=== PATIENT | female | born 2000 | race Caucasian/White ===

== ENCOUNTER 2020-02-02 11:57 | Emergency (ER) | payer OTHER, SELFPAY ==
--- NOTE | ~2020-02-02 | XR_ITS ---
EXAMINATION: XR abdomen/kub 1V INDICATION: Right flank pain and hematuria TECHNIQUE: Supine views of the abdomen were obtained on 2 radiographs. COMPARISON: None FINDINGS: There is a moderate volume of right-sided colonic stool. The bowel gas pattern is normal. N o suspected urinary tract calculi are identified. There is a phlebolith in the left pelvis. Surgical clips in the right upper quadrant are likely from prior cholecystectomy. IMPRESSION: 1. Constipation. No urinary tract calculi identified. Reviewed, dictated and finalized at location A.
[2020-02-02 12:14] VITALS: BP 105/65; PULSE 104; RESP 22; TEMP 37.2; O2SAT 100
[2020-02-02 12:20] VITALS: BP 105/65; PULSE 104; RESP 22; TEMP 37.2
--- NOTE | 2020-02-02 12:25 | ED.ABDPAIN ---
HPI - Abdominal Pain General Chief Complaint: Abdominal Pain Stated Complaint: pain in ribs Time Seen by Provider: 02/02/20 12:19 Source: patient and RN notes reviewed Mode of arrival: ambulatory Limitations: no limitations History of Present Illness HPI narrative: Patient presents today complaining of right flank pain x1 week, that has been worsening since onset. Pain increases with coughing or movement. Denies any injury, recent fever. Denies urinary symptoms to include dysuria or hematuria. Denies any cough or upper respiratory symptoms. Currently rates her pain 5/10, and states the pain waxes and wanes. She has been taking ibuprofen without relief. Last dose was last night. History of appendectomy and cholecystectomy. No history of kidney stones or pyelonephritis. Patient has Nexplanon. MD elicited complaint: flank pain Related Data Allergies Allergy/AdvReac Type Severity Reaction Status Date / Time No Known Allergies Allergy Verified 06/26/18 19:55 Review of Systems Review of Systems: Narrative: CONSTITUTIONAL: Denies body aches, fever, chills, or sweats. EYES: Denies visual changes, redness, or discharge. ENT: Denies rhinorrhea, congestion, sore throat, or otalgia. CARDIOVASCULAR: Denies chest pain, palpitations, or edema. RESPIRATORY: Denies cough or dyspnea. GASTROINTESTINAL: Denies abdominal pain, nausea, vomiting, or diarrhea. GENITOURINARY: Denies dysuria or hematuria. Right flank pain SKIN: Denies rash, itching, or wounds. MUSCULOSKELETAL: Denies back pain, joint pain, or myalgia. NEUROLOGIC: Denies headache, numbness, tingling, or weakness. PSYCH: Denies depression or anxiety. [facility] Surgical History Surgical History (Updated 02/02/20 @ 12:26 by Bri Rubalcava, [facility], ) History of appendectomy History of cholecystectomy Comments At time of signature, I have reviewed and agree with nursing past medical, surgical, social and family history unless otherwise noted. Please see nursing chart for further information. There is no relevant family history pertinent to the presenting complaint Exam Narrative: Exam Narrative: GENERAL: Mildly ill-appearing, well-nourished, and moderate pain distress. HEAD: Normocephalic, atraumatic. EYES: EOMI. No redness or drainage. Conjunctivae normal. ENT: Mucous membranes pink and moist. NECK: Normal AROM. Supple. No lymphadenopathy. CHEST: No respiratory distress. Clear to auscultation. HEART: Regular rate and rhythm. No murmur appreciated. Normal peripheral pulses. ABDOMEN: Soft, nontender, nondistended, normal active bowel sounds. +Right CVAT. Tenderness does extend laterally. MUSCULOSKELETAL: No bony tenderness. EXTREMITIES: Normal range of motion. No edema. SKIN: Warm, dry, no rash. Capillary refill normal. Normal skin turgor. NEURO: No focal deficits. Alert and oriented x3. Gait steady. PSYCH: Normal affect. No signs of depression or anxiety. Course Course Emergency Course: Discussed xray and lab results with patient. Discussed xray results with radiologist. Dr. Morrison states that it is possible that there could be a stone behind the retained stool that is currently visible on xray. Gave patient the option of going to the ER for further evaluation or going home with prescriptions for medications. Patient states she would like to try home treatment first, but agrees to go to the ER with any worsening symtpoms. Vital Signs Vital signs: Vital Signs Temperature 99.0 F 02/02/20 12:14 Pulse Rate 104 H 02/02/20 12:14 Respiratory Rate 22 H 02/02/20 12:14 Blood Pressure 105/65 02/02/20 12:14 Pulse Oximetry 100 02/02/20 12:14 Temperature 99.0 F 02/02/20 12:20 Pulse Rate 104 H 02/02/20 12:20 Respiratory Rate 22 H 02/02/20 12:20 Blood Pressure 105/65 02/02/20 12:20 Pulse Oximetry 100 02/02/20 12:14 Reviewed MDM - Abdominal Pain Differential Diagnosis Differential diagnosis: Likely calculus of kidney and other (Pyeloneph
[2020-02-02] MEDS: KETOROLAC (*BKC) 60 MG/2 ML VIAL IM (12:33)
--- NOTE | 2020-02-02 12:39 | PC.NURSE ---
UA complete. torodol per order.
--- NOTE | 2020-02-02 13:12 | PC.NURSE ---
pt states pain is not improving after torodol.
== END 2020-02-02 13:23 | disposition home or self-care (01) ==
PROVIDERS: Emergency Provider Nurse Practitioner; PCP Physician Assistant
DX: N30.01 Acute cystitis with hematuria (principal); K59.00 Constipation, unspecified
CPT/HCPCS: 74018; 81003; 87077; 87086; 87088; 87186; 96372; 99213; G0463; J1885

== ENCOUNTER 2020-05-15 14:56 | Emergency (ER) | payer OTHER, SELFPAY ==
--- NOTE | ~2020-05-15 | XR_ITS ---
EXAMINATION: XR foot RT min 3V EXAM DATE: 05/15/2020 15:29 INDICATION: Inversion injury, proximal dorsal right foot pain. Initial encounter. TECHNIQUE: Right foot dorsoplantar, lateral and oblique projections obtained and reviewed. Compariso n is made to prior examination from 08/13/2012. FINDINGS: Right metatarsal bones unremarkable. There are no acute fractures or dislocations identifi ed. There is no subcutaneous gas. The soft tissue is unremarkable. There are no radiopaque foreig n bodies. IMPRESSION: 1. Right foot exam without acute osseous findings. Reviewed, dictated and finalized at location A.
[2020-05-15 15:06] VITALS: BP 117/53; PULSE 85; RESP 14; TEMP 36.6; O2SAT 100
--- NOTE | 2020-05-15 15:36 | ED.GENADULT ---
HPI - General Adult General Chief complaint: Extremity Injury, Lower Stated complaint: Right ankle pain Time Seen by Provider: 05/15/20 15:48 Source: patient Mode of arrival: ambulatory Limitations: no limitations History of Present Illness HPI narrative: 19-year-old female patient presents to the [facility] with complaints of right foot pain. Patient states that she twisted her ankle and foot when coming down her basement stairs earlier this afternoon. Patient denies taking any Tylenol or ibuprofen for pain so far. Patient has iced it. Patient complains of pain with ambulation. Related Data Home Medications Medication Instructions Recorded Confirmed No Home Medications 05/15/20 05/15/20 Allergies Allergy/AdvReac Type Severity Reaction Status Date / Time No Known Allergies Allergy Verified 05/15/20 15:28 Review of Systems Review of Systems: Narrative: CONSTITUTIONAL: Denies fever, chills, or sweats. EYES: Denies visual changes, redness, or discharge. ENT: Denies rhinorrhea, congestion, sore throat, or otalgia. CARDIOVASCULAR: Denies chest pain, palpitations, or edema. RESPIRATORY: Denies cough or dyspnea. GASTROINTESTINAL: Denies abdominal pain, nausea, vomiting, or diarrhea. GENITOURINARY: Denies dysuria or hematuria. SKIN: Denies rash or itching. MUSCULOSKELETAL: Denies back pain, joint pain, or myalgia. Positive right foot pain NEUROLOGIC: Denies headache, numbness, or weakness. PSYCHIATRIC: Denies anxiety or depression. [facility] Surgical History Surgical History History of appendectomy History of cholecystectomy Comments At the time of my signature I agree with nursing past medical history, surgical, social, and family history. There is no relevant family history pertinent to the presenting complaint. Exam Narrative: Exam Narrative: GENERAL: Well-appearing, well-nourished, and in no acute distress. HEAD: Normocephalic, atraumatic. EYES: PERRLA and EOMI. ENT: Nares clear, no rhinorrhea or epistaxis. Mucous membranes moist. NECK: Supple. No lymphadenopathy CHEST: Clear to auscultation. No respiratory distress. HEART: Regular rate and rhythm. No murmur heard. Normal peripheral pulses. ABDOMEN: Soft, nontender, nondistended, normal active bowel sounds. EXTREMITIES: Patient unable to bear weight or ambulate without pain to right foot. No surface trauma, very slight ecchymosis noted to the lateral side of the foot, no erythema, lesions, ulcers or break in skin integrity. The R foot is without obvious asymmetry or deformity when compared to the L foot. No bony step-off, nontender to palpation over the toes, tenderness over the lateral midfoot of the right foot denies pain to the hindfoot or sole. Normal plantar/dorsiflexion, inversion/eversion. Distal motor and neurovascular status are intact SKIN: Warm, dry, no rash. NEURO: No focal deficits. Alert and oriented x3. Course Vital Signs Vital signs: Vital Signs Temperature 36.6 C 05/15/20 15:06 Pulse Rate 85 05/15/20 15:06 Respiratory Rate 14 05/15/20 15:06 Blood Pressure 117/53 L 05/15/20 15:06 Pulse Oximetry 100 05/15/20 15:06 Temperature 36.6 C 05/15/20 15:06 Pulse Rate 85 05/15/20 15:06 Respiratory Rate 14 05/15/20 15:06 Blood Pressure 117/53 L 05/15/20 15:06 Pulse Oximetry 100 05/15/20 15:06 Vital signs reviewed. Medical Decision Making Differential Diagnosis Differential Diagnosis: Differential diagnosis: Foot fracture, crush injury, compartment syndrome, contusion, sprain, tendinitis,lisfranc sprain or fracture, avulsion fracture, grown toenail, diabetic ulcer. Notify patient that the x-ray does not show any obvious fractures at this time. Discussed with her that this is most likely a sprain therefore we will go ahead and wrap her with an Aelxy wrap as well as give her some crutches to help with ambulation. Discussed with patient she can take Tylenol and ibuprof
== END 2020-05-15 16:00 | disposition home or self-care (01) ==
PROVIDERS: Emergency Provider Nurse Practitioner Family; PCP Physician Assistant
DX: S93.601A Unspecified sprain of right foot, initial encounter (principal); X50.9XXA Other and unspecified overexertion or strenuous movements or postures, initial encounter
CPT/HCPCS: 73630; 99213; G0463

== ENCOUNTER 2021-01-31 11:55 | Emergency (ER) | payer OTHER, SELFPAY ==
[2021-01-31 12:05] VITALS: BP 128/66; PULSE 115; RESP 20; TEMP 37.2; O2SAT 100
--- NOTE | 2021-01-31 12:05 | ED.BACK ---
HPI - Back Pain/Injury General Chief Complaint: Back Pain/Injury Stated Complaint: lower back pain/nausea Time Seen by Provider: 01/31/21 12:06 Source: patient and RN notes reviewed Mode of arrival: ambulatory Limitations: no limitations History of Present Illness HPI Narrative: 20-year-old female presents concern for 5-day history sent history of mid back pain, nausea, vomiting. Reports 4-5 episodes of vomiting daily. Reports constant midline low back pain with no relieving or exacerbating factors. Denies fever, dysuria, hematuria, flank pain, urgency, frequency. Reports constipation for 5 days. Denies intervention. MD elicited complaint: back pain Related Data Home Medications Medication Instructions Recorded Confirmed No Home Medications 05/15/20 01/31/21 Allergies Allergy/AdvReac Type Severity Reaction Status Date / Time No Known Allergies Allergy Verified 01/31/21 12:06 Review of Systems Review of Systems: Narrative: CONSTITUTIONAL: Denies malaise, chills, sweats, or fever. CARDIOVASCULAR: Denies chest pain, palpitations, or edema. RESPIRATORY: Denies cough or dyspnea. GASTROINTESTINAL: Denies abdominal pain, diarrhea, bloody, or mucous stools. Reports constipation, nausea, vomiting, GENITOURINARY: Denies dysuria or hematuria. SKIN: Denies rash or itching. MUSCULOSKELETAL: Reports constant midline back pain. Denies joint pain, or myalgia. NEUROLOGIC: Denies numbness, weakness, or headache. All systems reviewed & are unremarkable except as noted in HPI and below PMFSH Surgical History Surgical History History of appendectomy History of cholecystectomy Comments At time of signature, agree with nursing past medical, surgical, social and family history. There is no relevant family history pertinent to the presenting complaint Exam Narrative: Exam Narrative: GENERAL: Nontoxic appearing, in no acute distress. HEAD: Normocephalic EYES: PERRLA, conjunctivae clear ENT: Mucous membranes slightly dry. NECK: Supple. CHEST: No respiratory distress. Speaks in full sentences. HEART: Regular rate and rhythm ABDOMEN: Soft, nontender, nondistended, normal active bowel sounds, no palpable masses. EXTREMITIES: Grossly normal range of motion, no edema, grossly normal strength and sensation. Midline back tenderness. Transfers from sitting to standing position. Normal gait SKIN: Warm, dry, no rash. NEURO: Alert and oriented x3. PSYCH: Normal mood and affect Course Course Emergency Course: Patient is aware of, understands and agrees to reasons to be seen in the emergency department. Patient agrees to proceed directly to the emergency department. Portions of this record may have been created with voice recognition software Vital Signs Vital signs: Vital Signs Temperature 98.9 F 01/31/21 12:05 Pulse Rate 115 H 01/31/21 12:05 Respiratory Rate 20 01/31/21 12:05 Blood Pressure 128/66 01/31/21 12:05 Pulse Oximetry 100 01/31/21 12:05 Temperature 98.9 F 01/31/21 12:05 Pulse Rate 115 H 01/31/21 12:05 Respiratory Rate 20 01/31/21 12:05 Blood Pressure 128/66 01/31/21 12:05 Pulse Oximetry 100 01/31/21 12:05 Reviewed. Transfer Transfered to: [facility]) Transportation: Other (Private vehicle) Transfer rationale: Back pain, vomiting, concern for dehydration, constipation Accepting physician: Heri MDM - Back Pain/Injury MDM Narrative Medical decision making narrative: Exam findings and history warrant further evaluation emergency department; patient is non-toxic appearing and is in no distress. No treatment given at this time for UTI, will defer to ER. Lab Data Labs: Urine Glucose Negative Reference Range: Negative Urine Bilirubin Negative Reference Range: Negative Urine Ketone
[2021-01-31] MEDS: ONDANSETRON HCL ODT 4 MG TABLET PO (12:23)
== END 2021-01-31 12:23 | disposition short-term general hospital (02) ==
PROVIDERS: Emergency Provider Nurse Practitioner; PCP Physician Assistant
DX: M54.5 Low back pain (principal)
CPT/HCPCS: 81003; 99213; A9270; G0463

== ENCOUNTER 2022-06-17 11:18 | Emergency (ER) | payer OTHER, SELFPAY ==
--- NOTE | ~2022-06-17 | XR_ITS ---
EXAMINATION: XR tibia fibula LT 2V INDICATION: Left leg pain TECHNIQUE: Two views of the left tibia and fibula are obtained. COMPARISON: None available FINDINGS: There is anterior soft tissue swelling overlying the proximal tibia and fibula. No fracture is identified. Bone alignment at the knee and ankle is normal. IMPRESSION: 1. Soft tissue swelling without acute osseous abnormality. Reviewed, dictated and finalized at location B.
[2022-06-17 11:27] VITALS: BP 155/61; PULSE 111; RESP 18; TEMP 37.4; O2SAT 100
--- NOTE | 2022-06-17 11:33 | PC.NURSE ---
PT DECLINED ICE AND WHEELCHAIR
--- NOTE | 2022-06-17 11:35 | ED.LOWEXIN ---
HPI - Extremity Injury (Lower) General Chief Complaint: Extremity Injury, Lower Stated Complaint: left foot pain Time Seen by Provider: 06/17/22 11:35 Source: patient Mode of arrival: ambulatory Limitations: no limitations History of Present Illness HPI Narrative: 21 y/o female presented for c/o left lower leg pain after injury 2 weeks ago. At the time, she injured the leg while attempting a cartwheel into a pool, hitting the leg on the concrete side of the pool. Endorses Bruising and swelling is improving but since the pain persists she wanted evaluation. She is able to bear weight. Denies numbness, tingling or weakness of the extremity. Related Data Home Medications Medication Instructions Recorded Confirmed No Home Medications 05/15/20 06/17/22 Allergies Allergy/AdvReac Type Severity Reaction Status Date / Time No Known Allergies Allergy Verified 06/17/22 11:22 Review of Systems Review of Systems: CONSTITUTIONAL: Denies body aches, fever, chills CARDIOVASCULAR: Denies chest pain, palpitations, or edema. RESPIRATORY: Denies cough or dyspnea. SKIN: Bruising left leg MUSCULOSKELETAL: Reports leg pain NEUROLOGIC: Denies headache, numbness, tingling, or weakness. All systems reviewed & are unremarkable except as noted in HPI and below PMFSH Surgical History Surgical History History of appendectomy History of cholecystectomy Comments At time of signature, I have reviewed and agree with nursing past medical, surgical, social and family history unless otherwise noted. Please see nursing chart for further information. There is no relevant family history pertinent to the presenting complaint Exam Narrative: GENERAL: Well-appearing, well-nourished, and in no acute distress. HEAD: Normocephalic, atraumatic. EYES: conjunctivae clear CHEST: Speaks in full sentences. No respiratory distress. EXTREMITIES: Large contusion to left ibrahim, tender with palpation, mild warmth, no induration or redness; leg has normal strength and sensation, normal range of motion. No open wounds or obvious deformity; pulse palpable and equal bilaterally, skin warm, dry, pink. Capillary refill less than 3 seconds. SKIN: Warm, dry, no rash. NEURO: Alert and oriented x3. Course Course Emergency Course: Patient is aware of diagnosis, understands and agrees to treatment plan. Anticipatory guidance given. Patient agrees to follow-up as directed and is aware of reasons to seek care at the emergency department. Portions of this record may have been created with voice recognition software Level of Care: Express Care Visit Vital Signs Vital signs: Vital Signs Temperature 99.4 F 06/17/22 11:27 Pulse Rate 111 H 06/17/22 11:27 Respiratory Rate 18 06/17/22 11:27 Blood Pressure 155/61 H 06/17/22 11:27 Pulse Oximetry 100 06/17/22 11:27 Oxygen Delivery Room Air 06/17/22 11:27 Temperature 99.4 F 06/17/22 11:27 Pulse Rate 111 H 06/17/22 11:27 Respiratory Rate 18 06/17/22 11:27 Blood Pressure 155/61 H 06/17/22 11:27 Pulse Oximetry 100 06/17/22 11:27 Oxygen Delivery Room Air 06/17/22 11:27 Reviewed MDM - Extremity Injury (Lower) MDM Narrative Medical decision making narrative: Result of x-ray reviewed with patient. FRANKY applied. Advised supportive measures and signs/symptoms to go to the ER. Pt is appropriate for outpt treatment and f/u. Differential Diagnosis Differential diagnosis: Likely fracture of femur and other (contusion, abscess, cellulitis) Imaging Data Radiologist's impression: Patient: Fidel Hough : 2000 MR#: [id number] Age/Sex: 21 / F Acct:[id number] Loc: [facility]? ? ADM Date: 06/17/22Attending Dr: Ordering Physician: Tanya Martinez APRN Date of Service: 06/17/22 Procedure(s): XR tibia fibula LT 2V Accession Number(s): [id number] cc: Tanya Martinez APRN; Bekah Adame [facility]~ EXAMINATION:
== END 2022-06-17 11:45 | disposition home or self-care (01) ==
PROVIDERS: Emergency Provider Nurse Practitioner Family; PCP Physician Assistant
DX: S80.12XA Contusion of left lower leg, initial encounter (principal); W22.8XXA Striking against or struck by other objects, initial encounter
CPT/HCPCS: 73590; 99213; G0463

== ENCOUNTER 2024-07-12 11:34 | Emergency (ER) | payer OTHER, SELFPAY ==
[2024-07-12 11:44] VITALS: BP 113/67; PULSE 78; RESP 16; TEMP 36.9; O2SAT 99
--- NOTE | 2024-07-12 12:32 | ED.DENTAL ---
HPI - Dental/Oral General Chief complaint: Dental/Oral Stated complaint: Toothache Source: patient Mode of arrival: ambulatory History of Present Illness HPI Narrative: 23-year-old female presented for complaint of bilateral upper dental pain worsening over the past few months. She does not have a dentist. She says Tylenol and ibuprofen does not help the pain. Denies facial swelling, n/v/d/f/c. Complaint: tooth pain Related Data Allergies Allergy/AdvReac Type Severity Reaction Status Date / Time No Known Allergies Allergy Verified 06/17/22 11:22 Review of Systems Review of Systems: CONSTITUTIONAL: Denies body aches, fever, chills ENT: Denies rhinorrhea, congestion, sore throat, or otalgia. Reports dental pain CARDIOVASCULAR: Denies chest pain, palpitations RESPIRATORY: Denies cough or dyspnea. SKIN: Denies rash, itching, or wounds. MUSCULOSKELETAL: Denies myalgia. NEUROLOGIC: Denies headache, numbness, tingling, or weakness. [facility] Surgical History Surgical History History of appendectomy History of cholecystectomy Comments At time of signature, I have reviewed and agree with nursing past medical, surgical, social and family history unless otherwise noted. Please see nursing chart for further information. There is no relevant family history pertinent to the presenting complaint Exam Narrative: GENERAL: Appears in pain; no acute distress. HEAD: Normocephalic, atraumatic. No facial swelling. EYES: EOMI. No redness or drainage. Conjunctivae normal. ENT: Dental pain location of #14, #3, extremely poor dentition throughout, broken teeth and caries, erosion, and gingivitis noted. Mucous membranes pink and moist. TMs normal bilaterally. Throat normal, no dysphagia, odynophagia, dysphonia, or dyspnea. No uvular deviation or soft palate edema. NECK: Normal AROM. No lymphadenopathy. no induration below mandible, no neck pain. CHEST: No respiratory distress. Clear to auscultation. HEART: Regular rate and rhythm. No murmur appreciated. NEURO: Alert and oriented x3. Gait steady. Course Course Emergency Course: Patient is aware of diagnosis, understands and agrees to treatment plan. Anticipatory guidance given. Patient agrees to follow-up as directed and is aware of reasons to seek care at the emergency department. Portions of this record may have been created with voice recognition software Level of Care: Express Care Visit Vital Signs Vital signs: Vital Signs Temperature 98.4 F 07/12/24 11:44 Pulse Rate 78 07/12/24 11:44 Respiratory Rate 16 07/12/24 11:44 Blood Pressure 113/67 07/12/24 11:44 Pulse Oximetry 99 07/12/24 11:44 Oxygen Delivery Room Air 07/12/24 11:44 Temperature 98.4 F 07/12/24 11:44 Pulse Rate 78 07/12/24 11:44 Respiratory Rate 16 07/12/24 11:44 Blood Pressure 113/67 07/12/24 11:44 Pulse Oximetry 99 07/12/24 11:44 Oxygen Delivery Room Air 07/12/24 11:44 MDM - Dental/Oral MDM Narrative Medical decision making narrative: Patients pain and complaint coupled with physical findings are consistent with dentalgia. There are no focal signs of space occupying lesions that are compromising to the airway; Patient is non-toxic appearing. The floor of the mouth is soft with no signs of Sid's Angina; Patient is without trismus or drooling and able to swallow secretions. Patient is felt appropriate for discharge home with dental follow up. Discharge Plan Discharge Clinical Impression: Toothache Patient Disposition: Home, Self-Care Condition: Stable Instructions: Antibiotic Form, Dental Abscess (ED) Additional Instructions: Take antibiotic as directed May apply heat or ice to the face Gentle brushing and flossing. Rinse mouth with warm salt water at least 2 times a day. Alternate Tylenol and ibuprofen as needed for pain Follow-up with the dentist as soon as
== END 2024-07-12 12:45 | disposition home or self-care (01) ==
PROVIDERS: Emergency Provider Nurse Practitioner Family; PCP Physician Assistant
DX: K08.89 Other specified disorders of teeth and supporting structures (principal)
CPT/HCPCS: 99213; G0463

== ENCOUNTER 2025-09-15 09:14 | Emergency (ER) | payer OTHER, SELFPAY ==
[2025-09-15 09:28] VITALS: BP 121/75; PULSE 74; RESP 20; TEMP 36.6; O2SAT 100
--- NOTE | 2025-09-15 10:24 | ED_ITS ---
HPI - Skin/Abscess/Foreign Bdy General Chief complaint: Skin/Abscess/Foreign Body Stated complaint: Skin Problem Time Seen by Provider: 09/15/25 10:10 Source: patient and RN notes reviewed Mode of arrival: ambulatory Limitations: no limitations History of Present Illness HPI narrative: 24-year-old female presents Express Care complaining of rash last 2 weeks. Says is getting worse. Patient reports started on her back with now migrated to her trunk, she reports the rash was trying pruritic. Patient denies any pain, fevers, swelling, drainage, body aches, chills, nausea, vomiting, your symptoms. Patient denies any history of skin problems. Patient is not draining help with symptoms. Related Data Allergies Allergy/AdvReac Type Severity Reaction Status Date / Time No Known Allergies Allergy Verified 09/15/25 09:37 Review of Systems Review of Systems: CONSTITUTIONAL: Denies fever, chills, or sweats. EYES: Denies visual changes, redness, or discharge. ENT: Denies rhinorrhea, congestion, sore throat, or otalgia. CARDIOVASCULAR: Denies chest pain, palpitations, or edema. RESPIRATORY: Denies cough or dyspnea. GASTROINTESTINAL: Denies abdominal pain, nausea, vomiting, or diarrhea. GENITOURINARY: Denies dysuria or hematuria. SKIN: Positive for rash and itching. MUSCULOSKELETAL: Denies back pain, joint pain, or myalgia. NEUROLOGIC: Denies headache, numbness, or weakness. PSYCHIATRIC: Denies anxiety or depression. All other systems reviewed are negative, except as documented in HPI. PMFSH Surgical History Surgical History History of cholecystectomy History of appendectomy Comments At the time of my signature, I reviewed and agree with the nursing past medical, surgical, social, and family history. There is no relevant family history pertinent to the patient complaint. Exam Narrative: GENERAL: This is a well-nourished, well-developed adult, in no apparent distress. They are non ill-appearing, nontoxic appearing. HEAD: normocephalic, atraumatic. EYES: Sclera clear/white. Conjunctiva normal. Vision is grossly intact. Extraocular movements intact EARS: External ears normal, Hearing grossly intact. NOSE: External nose normal THROAT: Mucous membranes moist, NECK: Neck supple, CARDIOVASCULAR: Regular rate and rhythm RESPIRATORY: Respiratory rate normal, respiratory effort nonlabored, no respiratory distress SKIN: There is a scattered macular rash scattered throughout the patient's trunk and back. There are a few plaque like erythematous lesions that appear dry and flaky without central clearing to the patient's upper back, right lateral neck, and right flank area. No area of fluctuance, no induration, nontender to palpate. NEURO: awake, alert, and oriented to person, place and time. There were no obvious focal neurologic abnormalities. EXTREMITIES: No joint tenderness, effusion, or edema noted. BACK: Nontender without deformity. Course Course Level of Care: Express Care Visit Vital Signs Vital signs: Vital Signs Temperature 97.8 F 09/15/25 09:28 Pulse Rate 74 09/15/25 09:28 Respiratory Rate 20 09/15/25 09:28 Blood Pressure 121/75 09/15/25 09:28 Pulse Oximetry 100 09/15/25 09:28 Oxygen Delivery Room Air 09/15/25 09:28 Temperature 97.8 F 09/15/25 09:28 Pulse Rate 74 09/15/25 09:28 Respiratory Rate 20 09/15/25 09:28 Blood Pressure 121/75 09/15/25 09:28 Pulse Oximetry 100 09/15/25 09:28 Oxygen Delivery Room Air 09/15/25 09:28 MDM MDM Narrative Medical decision making narrative: Rash appears to be dry and scaly, with a few plaque-like lesions present. No central clearing, no raised border. Seems to be atopic dermatitis. Will treat with prednisone and there were triamcinolone cream for the plaque lesions. Advised patient to follow-up with PCP for further evaluation. Discussed physical exam findings. Advised supportive measures and signs/symptoms to go to the ER. Pt is appropriate for outpt treatment and f/u. Differential Diagnosis Differential Diagnosis: Atopic dermatitis, eczema, plaque psoriasis, ringworm, rash, allergic reaction Critical Care Time Critical Care Time Critical Care Time: No Discharge Plan Discharge Clinical Impression: Rash and nonspecific skin eruption Patient Disposition: Home Condition: Stable Instructions: Eczema (ED), Psoriasis (ED) Additional Instructions: Take the prednisone as directed. Take it in the morning and take it with food. Apply the steroid cream as directed applied to the affected area to the large lesions. You may also take Zyrtec or Claritin as needed for allergy or itchiness symptoms. Apply fragrance free lotion twice a day such as Aveeno.. Follow-up PCP in 3-5 days. If you develop any worsening redness, swelling, discharge, fevers, breathing problems, or any other concerns please go to the ER immediately. Patient Language: [place] Prescriptions: New triamcinolone acetonide 0.5 % cream 1 applic topical BID 7 Days Qty: 15 0RF Rx Instructions: Apply to affected area prednisone 20 mg tablet 40 mg PO DAILY 5 Days Qty: 10 0RF Follow-up/Referrals: Deep,MONICA Jay [Primary Care Provider] Time of Disposition: 10:22
== END 2025-09-15 10:25 | disposition home or self-care (01) ==
PROVIDERS: PCP Physician Assistant
DX: R21 Rash and other nonspecific skin eruption (principal)
CPT/HCPCS: 99213; G0463